=== PATIENT | female | born 1985 | race Caucasian/White ===

== ENCOUNTER 2017-03-05 18:32 | Outpatient (CLI) | payer OTHER ==
[~2017-03-05] VITALS: Ht 157.5 cm; Wt 64.1 kg
[~2017-03-05 18:32] MED LIST: NONE PER PATIENT
== END 2017-03-05 19:10 | disposition home or self-care (01) ==
LOC: LDOP 18:32
PROVIDERS: ATTEND Obstetrics & Gynecology
DX: O26.893 Other specified pregnancy related conditions, third trimester (principal); O62.9 Abnormality of forces of labor, unspecified; R10.30 Lower abdominal pain, unspecified; Z3A.33 33 weeks gestation of pregnancy
CPT/HCPCS: 59025; 99211; G0463

== ENCOUNTER 2017-04-12 05:36 | Inpatient (IN) | payer OTHER ==
[~2017-04-12] VITALS: Ht 157.5 cm; Wt 64.5 kg
[2017-04-12] MEDS ORDERED: OXYTOCIN 30U/ 0.9% NaCL 500ML 500 ML IV SCH (05:39)
[2017-04-12] MEDS ORDERED: METOCLOPRAMIDE 5 MG/ML, 2ML ONE ×2 (05:43→07:35)
[2017-04-12] MEDS ORDERED: SODIUM CITRATE/CITRIC ACID 30 ML UDC ONE (05:43)
[2017-04-12 05:44] VITALS: BP 99/65
[2017-04-12] MEDS ORDERED: NEWBORN KIT ONE (05:44)
[2017-04-12] MEDS ORDERED: PREN-3 PO (05:53)
[2017-04-12] MEDS ORDERED: SODIUM CITRATE/CITRIC ACID 30 ML UDC PO ONE (06:00)
[2017-04-12] MEDS ORDERED: LACTATED RINGERS 1,000 ML IV SCH (06:00)
[2017-04-12] MEDS ORDERED: METOCLOPRAMIDE 5 MG/ML, 2ML IV ONE (06:00)
[2017-04-12] MEDS: LACTATED RINGERS 1,000 ML IV SCH ×6 (06:00→20:00)
[2017-04-12] MEDS ORDERED: LACTATED RINGERS 1,000 ML IVBOLUS ONE (06:00)
[2017-04-12 06:12] LABS: HEMOGLOBIN 12.4 g/dL (11.7-16.4); WHITE BLOOD COUNT 9.1 x10^3/uL (3.4-10)
[2017-04-12] MEDS ORDERED: OXYTOCIN 30U/ 0.9% NaCL 500ML 500 ML ONE (07:33)
[2017-04-12] MEDS ORDERED: CEFAZOLIN 1,000 MG ONE (07:35)
[2017-04-12] MEDS ORDERED: ONDANSETRON 2MG/ML, 2ML ONE (07:35)
[2017-04-12] MEDS: OXYTOCIN 30U/ 0.9% NaCL 500ML 500 ML IV SCH ×2 (08:55→20:00)
[2017-04-12] MEDS ORDERED: CALCIUM CARBONATE 500 MG TAB.CHEW PO PRN (09:00)
[2017-04-12] MEDS ORDERED: MISOPROSTOL 200 MCG TABLET PR PRN (09:00)
[2017-04-12] MEDS ORDERED: MEPERIDINE/PF 50 MG/ML IVPush PRN (09:00)
[2017-04-12] MEDS: PRENATAL VIT/IRON/FA 1 EACH TABLET PO SCH (09:00)
[2017-04-12] MEDS ORDERED: ONDANSETRON 2MG/ML, 2ML IV PRN (09:00)
[2017-04-12] MEDS ORDERED: OXYcodone/APAP 5/325MG TABLET PO PRN (09:00)
[2017-04-12] MEDS ORDERED: morphine SULFATE 10 MG/ML, 1ML IVPush PRN ×2 (09:00)
[2017-04-12] MEDS ORDERED: morphine SULFATE 10 MG/ML, 1ML ONE (09:25)
[2017-04-12] MEDS ORDERED: MORPHINE SULFATE 4 MG/ML, 1ML IVPush PRN (10:20)
[2017-04-12 10:45] VITALS: BP 107/59
[2017-04-12] MEDS: OXYcodone/APAP 5/325MG TABLET PO PRN ×3 (11:32→19:45)
[2017-04-12 14:50] VITALS: BP 100/65
[2017-04-12 16:53] LABS: HEMATOCRIT 38.1 % (34.6-47.8); HEMOGLOBIN 12.4 g/dL (11.7-16.4)
[2017-04-12 20:00] VITALS: BP 105/55
[2017-04-12] MEDS ORDERED: OXYcodone IR 5MG TABLET PO PRN ×2 (22:30)
[2017-04-13 00:03] VITALS: BP 93/57
[2017-04-13] MEDS: LACTATED RINGERS 1,000 ML IV SCH ×5 (00:55→16:55)
[2017-04-13] MEDS ORDERED: DOCU-131 PO (03:31)
[2017-04-13] MEDS ORDERED: OXYC-302 PO (03:34)
[2017-04-13 04:20] VITALS: BP 91/56
[2017-04-13] MEDS: OXYTOCIN 30U/ 0.9% NaCL 500ML 500 ML IV SCH ×2 (04:55→14:55)
[2017-04-13 08:10] VITALS: BP 102/68
[2017-04-13] MEDS: PRENATAL VIT/IRON/FA 1 EACH TABLET PO SCH (08:44)
[2017-04-13] MEDS: DOCUSATE 100 MG CAPSULE PO PRN ×2 (08:44→19:14)
[2017-04-13] MEDS: OXYcodone/APAP 5/325MG TABLET PO PRN ×5 (08:44→23:24)
[2017-04-13 20:00] VITALS: BP 109/75
[2017-04-13] MEDS ORDERED: OXYcodone/APAP 5/325MG TABLET PO PRN (21:30)
[2017-04-13] MEDS ORDERED: CALCIUM CARBONATE 500 MG TAB.CHEW PO PRN (21:30)
[2017-04-13] MEDS ORDERED: OXYcodone IR 5MG TABLET PO PRN (21:30)
[2017-04-13] MEDS ORDERED: ONDANSETRON 2MG/ML, 2ML IV PRN (21:30)
[2017-04-14] MEDS: OXYTOCIN 30U/ 0.9% NaCL 500ML 500 ML IV SCH ×2 (00:55→10:55)
[2017-04-14] MEDS: LACTATED RINGERS 1,000 ML IV SCH ×4 (00:55→10:55)
[2017-04-14] MEDS: OXYcodone/APAP 5/325MG TABLET PO PRN ×3 (03:26→11:55)
[2017-04-14 07:05] VITALS: BP 90/57
[2017-04-14] MEDS ORDERED: PRENATAL VIT/IRON/FA 1 EACH TABLET ONE (07:09)
[2017-04-14] MEDS: DOCUSATE 100 MG CAPSULE PO PRN (07:15)
[2017-04-14] MEDS ORDERED: PRENATAL VIT/IRON/FA 1 EACH TABLET PO SCH (09:00)
== END 2017-04-14 13:33 | disposition home or self-care (01) | DRG 766 ==
LOC: LDIP 05:36 → 2NW 10:43
PROVIDERS: ADMIT Obstetrics & Gynecology; ATTEND Obstetrics & Gynecology
PROC: 10D00Z1 Extraction of Products of Conception, Low, Open Approach (ICD-10-PCS; principal; 2017-04-12)
PROC: 0UT70ZZ Resection of Bilateral Fallopian Tubes, Open Approach (ICD-10-PCS; 2017-04-12)
DX: O34.211 Maternal care for low transverse scar from previous cesarean delivery (principal); D25.2 Subserosal leiomyoma of uterus; O34.13 Maternal care for benign tumor of corpus uteri, third trimester; Z37.0 Single live birth; Z3A.39 39 weeks gestation of pregnancy; Z64.1 Problems related to multiparity; Z30.2 Encounter for sterilization; Z86.73 Personal history of transient ischemic attack (TIA), and cerebral infarction without residual deficits
CPT/HCPCS: 36415; 82803; 85025; 86850; 86900; 88302; J0690; J2405; J2270; J2590; J2765; J7120

== ENCOUNTER 2017-08-08 13:43 | Emergency (ER) | payer OTHER ==
[~2017-08-08] VITALS: Ht 157.5 cm; Wt 57.8 kg
[~2017-08-08 13:43] MED LIST changes: +DOCU-131 PO; +OXYC-302 PO; +PREN-3 PO
[2017-08-08] MEDS ORDERED: ACETAMINOPHEN 325 MG TABLET PO ONE (14:30)
[2017-08-08] MEDS ORDERED: ACETAMINOPHEN 325 MG TABLET ONE (14:32)
[2017-08-08 16:39] VITALS: BP 124/72
== END 2017-08-08 16:41 | disposition home or self-care (01) ==
LOC: ED 15:34
DX: S09.90XA Unspecified injury of head, initial encounter (principal); Z86.73 Personal history of transient ischemic attack (TIA), and cerebral infarction without residual deficits; V49.49XA Driver injured in collision with other motor vehicles in traffic accident, initial encounter; Y93.89 Activity, other specified; Y92.488 Other paved roadways as the place of occurrence of the external cause; Y99.8 Other external cause status
CPT/HCPCS: 70450; 99284

== ENCOUNTER 2018-02-09 00:06 | Emergency (ER) | payer OTHER ==
[~2018-02-09] VITALS: Ht 157.5 cm; Wt 56.5 kg
[2018-02-09 00:16] VITALS: BP 117/81
[2018-02-09 00:42] LABS: MICROSCOPIC AUTO
[2018-02-09 00:44] LABS: CULTURE INDICATED? YES
== END 2018-02-09 01:23 | disposition home or self-care (01) ==
LOC: ED 00:41
DX: N30.90 Cystitis, unspecified without hematuria (principal)
CPT/HCPCS: 81001; 87077; 87086; 87186; 99284

== ENCOUNTER 2018-09-09 17:35 | Emergency (ER) | payer OTHER ==
[~2018-09-09] VITALS: Ht 157.5 cm; Wt 57.6 kg
[2018-09-09 17:59] LABS: BASOPHILS # (AUTO) 0.04 x10^3/uL (0-0.1); BASOPHILS % (AUTO) 1 % (0-1); EOSINOPHILS # (AUTO) 0.08 x10^3/uL (0-0.4); EOSINOPHILS % (AUTO) 1 % (1-7); LYMPHOCYTES # (AUTO) 2.47 x10^3/uL (1-3.4); LYMPHOCYTES % (AUTO) 32 % (22-44); MD NO; MEAN CORPUSCULAR HEMOGLOBIN 30.3 pg (27.0-34.8); MEAN CORPUSCULAR HGB CONC 33.5 g/dL (32.4-35.8); MEAN CORPUSCULAR VOLUME 90.4 fL (80-100); MEAN PLATELET VOLUME 9.3 fL (7.4-10.4); MONOCYTES # (AUTO) 0.63 x10^3/uL (0.2-0.8); MONOCYTES % (AUTO) 8 % (2-9); NEUTROPHILS # (AUTO) 4.47 x10^3/uL (1.8-6.8); NEUTROPHILS % (AUTO) 58 % (42-75); PLATELET COUNT 328 x10^3/uL (130-400); RED BLOOD COUNT 4.78 x10^6/uL (3.82-5.3); RED CELL DISTRIBUTION WIDTH 13.8 % (9.6-15.2)
[2018-09-09 18:07] LABS: ALBUMIN 3.9 g/dL (3.4-5.0); ANION GAP 7 mmol/L (5-15); CHLORIDE 107 mmol/L (98-107); CREATININE 0.73 mg/dL (0.55-1.02)
[2018-09-09 18:11] LABS: TROPONIN I < 0.015 ng/mL (0.000-0.045)
--- NOTE | 2018-09-09 18:25 | NUR ---
MD SPEAKING WITH PT ABOUT TEST RESULTS AND DISCHARGE PLANNING
[2018-09-09 18:26] VITALS: BP 98/55
== END 2018-09-09 19:43 | disposition home or self-care (01) ==
LOC: ED 18:25
DX: R07.89 Other chest pain (principal); Z86.73 Personal history of transient ischemic attack (TIA), and cerebral infarction without residual deficits
CPT/HCPCS: 36415; 71046; 80048; 82040; 84484; 84703; 85025; 93005; 99284

== ENCOUNTER 2020-05-02 12:43 | Outpatient (CLI) | payer OTHER | END 2020-05-02 23:59 | disposition home or self-care (01) | LOC: CFH 12:43 | PROVIDERS: ADMIT Obstetrics & Gynecology; ATTEND Internal Medicine | DX: R92.8 Other abnormal and inconclusive findings on diagnostic imaging of breast (principal); N64.4 Mastodynia | CPT/HCPCS: 76642; 77066; G0279; 77063 ==

== ENCOUNTER → 2020-06-06 | Outpatient (CLI) | payer OTHER | END | disposition home or self-care (01) | LOC: CVU 06:33 | PROVIDERS: ATTEND Internal Medicine Cardiovascular Disease | DX: R07.89 Other chest pain (principal); R06.02 Shortness of breath | CPT/HCPCS: 93306; 93356 ==

== ENCOUNTER → 2020-10-31 | Outpatient (CLI) | payer OTHER ==
[~2020-10-31] MED LIST changes: -OXYC-302 PO; +OXYC1TAB14 PO
== END | disposition home or self-care (01) ==
LOC: CFH 07:38
PROVIDERS: ATTEND Nurse Practitioner Family
DX: R07.9 Chest pain, unspecified (principal)
CPT/HCPCS: 78452; 93017; A9502

== ENCOUNTER → 2020-11-09 | Outpatient (CLI) | payer OTHER ==
[~2020-11-09] MED LIST changes: +GADOTERATE 7.5 MMOL/15 ML VIAL ONE
== END | disposition home or self-care (01) ==
LOC: CFH 10:15
PROVIDERS: ATTEND Internal Medicine
DX: N63.21 Unspecified lump in the left breast, upper outer quadrant (principal); N64.4 Mastodynia
CPT/HCPCS: 77049; A9575; C8908